=== PATIENT | female | born 1970 | race Caucasian/White ===

== ENCOUNTER 2018-03-15 17:34 | Emergency (ER) | payer MEDICAID, SELFPAY ==
[2018-03-15 17:40] VITALS: BP 140/84; PULSE 76; RESP 18; TEMP 37; O2SAT 99
[2018-03-15] MEDS: Lidocaine 5% Patch 1 PATCH (17:45)
--- NOTE | 2018-03-15 17:56 | ED.GENADUL ---
Disposition Clinical Impression: Left shoulder pain Disposition: HOME Condition: Fair Instructions: Shoulder Pain (ED) Additional Instructions: Please take a maximum of 1000 mg of Tylenol every 6 hours, please take a maximum of 550 mg of your naproxen twice daily. Please use the Lidoderm patch, muscle relaxant, and cream as directed. Please do not drive, operate heavy machinery, climb ladders, while taking the muscle relaxant. Please follow-up with orthopedic surgeon as soon as possible for reevaluation. If you notice any worsening of your symptoms, or any new symptoms such as vomiting, diarrhea, fever, chills, shortness of breath, chest pain, numbness, weakness, or fainting , please return immediately to the emergency department for reevaluation. Please follow up with your primary care provider as soon as possible for reassessment and reevaluation. As always, it was a pleasure participating in your medical care today. 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 Medrano. She is scheduled to have surgery in less than 3 weeks. She comes in today for worsening of pain. She did see Dr. Medrano earlier this week, but had no significant improvement with the naproxen that was prescribed. She has been taking additional [id number] Tylenol for her symptoms with no significant improvement. Physical exam demonstrates worsening pain on internal rotation and posterior movement consistent with her history of musculoskeletal shoulder problems. She does have some associated numbness and tingling that comes and goes, worse at night. No evidence of weakness, hypo-or hyperthenar eminence wasting. She demonstrates intact sensation throughout. No significant crepitus or deformity. The patient does not want additional imaging at this time as she recently had imaging with Dr. Medrano within the past week. She denies any additional falls, or trauma since then. Physical exam shows no other abnormalities. Patient's signs and symptoms are consistent with anatomical shoulder pathology, and inconsistent with chest pathology, cardiac pathology, or central neurologic pathology. At this time we have provided the patient with additional pain options, including Lidoderm patch, Voltaren gel, IM Decadron, and muscle relaxants especially in light of her notable neck spasm and shoulder spasms. We have prescribed these for the patient, we have discussed red flags which to return as well as the importance of prompt surgical follow-through and evaluation with orthopedic surgeon. Patient understands. I have extensively reviewed the treatment plan and discharge instructions with the patient. I have addressed all patient concerns at this time. The patient was made aware of what symptoms to monitor for that would warrant a return to the emergency department. Discussed the plan with the patient, they demonstrate verbal understanding and agreement with our assessment and plan at this time. History of Present Illness - General Chief complaint: Orthopedic Stated complaint: LFT SHOULDER PAIN Time Seen by Provider: 03/15/18 17:53 - History of Present Illness Initial comments: This is a pleasant 47-year-old female with a past medical history of previous right-sided shoulder surgery, who presents today with left shoulder pain. Patient does have some chronic pain in her left shoulder however she states that roughly 1 week ago she was jumping out of her truck and caught herself, using both of her arms. She had some pain in her left shoulder at that time. However the pain has significantly worsened with time. She has seen Dr. Medrano in [place] for orthopedic referral, which she has received x-rays and an MRI which demonstrates rotator cuff abnormalities and the labrum tear. She is scheduled to have surgery on 03 April which is less than 3 weeks away. She was at Dr. Olea earlier this week, and was prescribed naproxen for her pain. She has been taking this and Tylenol and has had no significant improvement of her symptoms. She describes the pain as sharp and aching sensation with associated tightness that radiates to her neck, remainder of her shoulder and the proximal component of her forearm. She has no pleuritic chest pain, no shortness of breath, no chest pain, no diaphoresis, no fatigue. She has no history of cardiac disease, or cardiac risk factors of hypertension, diabetes, high cholesterol. She does occasionally smoke tobacco. The patient does have some associated occasional numbness and tingling in her arm which radiates down to her hand. Worse in the first 3 digits. Her pain is worsened with movement. She has had difficulty sleeping because of the pain. She is presenting today for options of relief. Patient denies any IV or illicit drug use. She denies any pertinent family history. She has no other complaints at this time. - Related Data Acetaminophen [Tylenol Extra Strength] 100 mg PO PRN PRN 03/15/18 Cyclobenzaprine [Flexeril] 10 mg PO TID #30 tab 03/15/18 Diclofenac Sodium [Voltaren] 100 gm TP BID #1 tube 03/15/18 Lidocaine 5% [Lidoderm 5% Patch] 1 each TP Q24H #4 patch 03/15/18 Naproxen Sodium 550 mg PO BID 03/15/18 Allergies Allergy/AdvReac Type Severity Reaction Status Date / Time Penicillins Allergy Unknown Unverified 03/15/18 17:53 Review of Systems Other: 10 point review of systems was performed, pertinent positives and negatives are noted in the history of present illness. General Exam - Other Other exam information: 1.Const: Well-nourished, Well-developed, appearing stated age 2.Eyes: PERRL, no conjunctival injection, and symmetrical lids. 3.ENT: Atraumatic external nose and ears. Moist MM. Neck: Symmetric, trachea midline, No thyromegaly. 4.CVS: +S1/S2, No murmurs or gallops. Peripheral pulses 2+ and equal in all extremities. Brisk capillary refill in all extremities. 5.RESP: Unlabored respiratory effort. Clear to auscultation bilaterally. No wheezes rales or rhonchi 6.GI: Soft, Nontender/Nondistended, No hepatosplenomegaly. No guarding or rebound. 7.MSK: Normocephalic/Atraumatic, Extremities w/o deformity No cyanosis or clubbing. The patient's left upper extremity demonstrates notable reproducible pain with internal rotation and posterior movement of the shoulder. She demonstrates normal external rotation and anterior movement. Minimal reproducible tenderness on the shoulder itself. No deformity. Notable tight musculature over the patient's left neck, left shoulder region. Normal sensation is intact throughout the patient's left upper extremity. Patient does have positive Phalen's test on percussion. She does demonstrate normal strength for the left upper extremity, however it is slightly reduced by pain. No evidence of thenar or hyperthenar eminence wasting. Brisk capillary refill, radial pulse +2 bilaterally. 8.Skin: Warm, Dry. No rashes or lesions. 9.Neuro: sample coordinator II-XII grossly intact. Sensation grossly intact, no focal neurologic deficits. 10.Psych: (AAO) x3. Appropriate mood and affect
[2018-03-15] MEDS: Cyclobenzaprine 10 MG TAB PO (18:05)
[2018-03-15] MEDS: Dexamethasone 10 MG/ML VIAL IM (18:11)
== END 2018-03-15 18:20 | disposition home or self-care (01) ==
LOC: ER 05-21 13:31
PROVIDERS: Emergency Provider Student in an Organized Health Care Education/Training Program; PCP Nurse Practitioner Family
DX: M25.512 Pain in left shoulder (principal)
CPT/HCPCS: 96372; 99284; J1100

== ENCOUNTER 2019-03-27 09:33 | Emergency (ER) | payer MEDICAID, SELFPAY ==
--- NOTE | 2019-03-27 09:37 | ED.GENADUL_ITS ---
Discharge Plan Disposition Patient Disposition: HOME Condition: Fair Discharge Details Chief Complaint: Orthopedic Clinical Impression: Ankle sprain Primary Care Provider: Mary Fu ED Provider: Aubrie Gardiner Home Meds and New Rx's Prescriptions: Continued naproxen sodium 550 MG tablet 550 mg PO BID RF: 0 acetaminophen [Tylenol Extra Strength] 500 MG tablet 100 mg PO PRN PRNRF: 0 lidocaine [Lidoderm] 1 PATCH adhesive patch,medicated 1 ea Topical Q24H Qty: 4 RF: 0 cyclobenzaprine 10 MG tablet 10 mg PO TID Qty: 30 RF: 0 diclofenac sodium [Voltaren] 100 GM gel 100 gm Topical BID Qty: 1 RF: 0 Discharge Instructions Instructions: Ankle Sprain (ED) Additional Instructions: Encourage rest, ice, elevation. Tylenol and ibuprofen as needed for discomfort. Please continue with brace for the next week and then afterwards for activities that causes increased pain. If the pain persists over the next 2 weeks, please follow-up with primary care. If you develop any new or worsening symptoms please seek care urgently once again. Referrals: Mary Fu [Primary Care Provider] - Discharge Data Discharge Date/Time-TO BE ENTERED AT DEPARTURE: 03/27/19 10:53 Medical Decision Making Patient is a 48 year old female presenting today with c/c of left ankle/foot pain. sTates that last night she suffered an internal rotational event coming down a step and has persistent pain over the proximal lateral foot where she has associated ecchymosis. Denies other injury at the time of the incident, did not hit her head, no LOC. Denies altered sensation. No previous injury to this area. Pain is over the proximal lateral dorsal foot. Concerned primarily for sprain as pain is maximal over the ATFL. However, as she has tenderned along the plantar surface near the 5th metatarsal, feel that imaging is appropriate. Patient declines analgesics. XR reviewed by radiologist: FINDINGS: Bones/joints: No acute fracture. No dislocation. Soft tissues: Normal. IMPRESSION: No acute findings. Discussed findings with the patient. Discussed likely sprain. Encourage rice. Advised Tylenol and ibuprofen as needed for discomfort. We will fit the patient with a splint to help with swelling and discomfort. Advise follow-up with primary care in 2 weeks if not improving. Discussed activities to avoid and strengthening excercises. She will seek care urgently with any new/worsening symptoms. All of her questions and concerns were addressed she is in agreement with plan. HPI General Mode of arrival: ambulatory . Date/Time Provider Initiated Documentation: 03/27/19 09:36 . Limitations to Documentation: no limitations . Information obtained by: patient and RN notes reviewed . History of Present Illness 48 year old F presents to the emergency department with the chief complaint of left foot pain, described as moderate, Quality is described as aching, and is localized to the left. Patient reports no radiation. Patient started experiencing this day(s) (1) and it has been constant. Immobilization improves symptom(s), Movement worsens symptoms . Patient notes no other symptoms.. Patient did receive the following treatments prior to arrival, none Related Data Home Medications Medication Instructions Recorded Confirmed acetaminophen [Tylenol Extra 100 mg PO PRN PRN 03/15/18 03/15/18 Strength] cyclobenzaprine 10 mg PO TID #30 tab 03/15/18 diclofenac sodium [Voltaren] 100 gm TOPICAL BID #1 tube 03/15/18 lidocaine [Lidoderm] 1 ea TOPICAL Q24H #4 patch 03/15/18 naproxen sodium 550 mg PO BID 03/15/18 03/15/18 Previous Rx's Medication Instructions Recorded cyclobenzaprine 10 mg PO TID #30 tab 03/15/18 diclofenac sodium [Voltaren] 100 gm TOPICAL BID #1 tube 03/15/18 lidocaine [Lidoderm] 1 ea TOPICAL Q24H #4 patch 03/15/18 Allergies Allergy/AdvReac Type Severity Reaction Status Date / Time Penicillins Allergy Unknown Unverified 03/15/18 17:53 Review of Systems Constitutional Reports as per HPI, Denies chills, Denies fever(s), Denies headache(s) and Denies weakness ENT Denies headache(s) Cardiovascular Reports as per HPI Respiratory Reports as per HPI and Denies cough Musculoskeletal Reports as per HPI and Denies tingling Integumentary/Breasts Reports as per HPI, Denies rash and Denies wounds Neurologic Reports as per HPI, Denies headache(s), Denies tingling, Denies paresthesias and Denies weakness PFSH Social History Smoking/Tobacco Use Status: Current, status unknown Tobacco Type: cigarettes Alcohol Intake: current Alcohol Intake frequency: a few times a week Alcohol type: beer and wine Drug use: Never Substance use type: does not use Do you feel safe at home: Yes Do you feel safe in your relationship?: Yes Exam Const General: cooperative, healthy appearing, comfortable, no acute distress, well developed and well groomed Nutritional Appearance: average body habitus and well nourished Orientation: alert and awake Resp Effort & Inspection: normal respiratory effort, able to speak in complete sentences and no respiratory distress Cardio Rate: regular rate Rhythm: regular rhythm Skin General skin exam: ecchymosis (proximal dorsal lateral left foot with associated swelling) Neuro General: alert and awake Cognition: normal cognition Speech: speech normal Gait: antalgic Motor: muscle tone normal throughout Sensory Exam: no sensory deficits noted Extrem Left lower extremity: full ROM, normal capillary refill, no joint enlargement, knee (no pain over proximal fibula), lower leg Details: normal to inspection and no edema; no localized swelling, ankle Details: normal to inspection, no edema, normal ROM and other (no pain with palpation over the lateral malleolus); no tenderness, no swelling, no warmth, no abrasions, no lacerations, no ecchymosis, no crepitus and achilles tendon exam normal and foot Details: normal capillary refill, tenderness Location: of the dorsal foot Location: proximally and laterally, of the plantar foot (near lateral 5th metatarsal) and of the lateral foot; not of the great toe, not of any other digit, not of the calcaneus and not of the base of the 5th metatarsal, toes with normal ROM, no edema, ecchymosis (as above), vascular exam Details: dorsalis pedis pulse present, posterior tibial pulse present and normal capillary refill, tendon exam Details: active flexion normal and active extension normal and motor-sensory exam Details: light-touch normal; no unusual warmth and no crepitus Ankle/foot/toe images: 1. area of ecchymosis Psych Appearance: grossly normal and well kempt Mental Status: mental status grossly normal Speech and Movement: speech and movement normal
--- NOTE | 2019-03-27 09:39 | NUR.NOTE ---
Nursing Note: pt states that at approximately 1999 last night she rolled her ankle wile walking down a flight of stars pt states no other injures no LOC
[2019-03-27 09:40] VITALS: BP 127/73; PULSE 90; RESP 15; TEMP 37.1; O2SAT 99
--- NOTE | 2019-03-27 09:54 | DI.RAD_ITS ---
SYMPTOM/DIAGNOSIS: LATERAL LT FOOT PAIN LEFT FOOT: Three views were obtained. No fracture is seen.
--- NOTE | 2019-03-27 10:22 | DI.VRAD_ITS ---
EXAM: XR Left Foot Complete EXAM DATE/TIME: 03/27/2019 9:41 AM CLINICAL HISTORY: 48 years old, female; Patient HX: Left lateral foot pain due to twisting injury TECHNIQUE: Imaging protocol: XR Left foot. Views: 3 or more views. COMPARISON: No relevant prior studies available. FINDINGS: Bones/joints: No acute fracture. No dislocation. Soft tissues: Normal. IMPRESSION: No acute findings. Dictated and Authenticated by: Adry Lerma MD. Ordering:SUMAN Alfred MD
[2019-03-27 10:52] VITALS: BP 127/73; PULSE 90; RESP 15; TEMP 37.1; O2SAT 99
== END 2019-03-27 10:53 | disposition home or self-care (01) ==
PROVIDERS: Emergency Provider Physician Assistant; PCP Nurse Practitioner Family
DX: S93.402A Sprain of unspecified ligament of left ankle, initial encounter (principal); W10.8XXA Fall (on) (from) other stairs and steps, initial encounter
CPT/HCPCS: 99283; 73630; 99282; L1902

== ENCOUNTER 2020-06-11 11:05 | Emergency (ER) | payer MEDICAID, SELFPAY ==
[2020-06-11 11:14] VITALS: BP 143/78; PULSE 107; TEMP 36.9; O2SAT 98
--- NOTE | 2020-06-11 11:15 | W.ED.GENAD ---
Discharge Plan Disposition Patient Disposition: HOME Condition: Stable Discharge Details Clinical Impression: Dental infection Primary Care Provider: None,None ED Provider: Demetrius Henderson Home Meds and New Rx's Prescriptions: New clindamycin HCl 300 mg capsule 300 mg PO TID 10 Days Qty: 30 RF: 0 Continued ibuprofen 200 mg Tablet 600 mg PO Q6H PRNRF: 0 acetaminophen [Tylenol Extra Strength] 500 MG tablet 500 mg PO PRN PRNRF: 0 Discharge Instructions Instructions: Dental Abscess (ED) Additional Instructions: Discontinue taking the amoxicillin and begin clindamycin as directed. [id number] Tylenol and/or Motrin as directed for discomfort. Cool and/or warm compresses every 2 hours for 20 days. You may use lhyd-[id number] Orajel as directed. Salt water swishes and spits as tolerated. I do recommend that you quit smoking as well. Please watch for new or worsening symptoms and return to the ER for any concerns. Otherwise I would like you to follow-up with your dentist as already scheduled at 7 AM tomorrow morning. Medical Decision Making 49-year-old female presents with right-sided dental, facial, neck and ear discomfort worsening over the past 2 days. Has taken a total of 4 tablets of unknown strength amoxicillin. Scheduled to see a dentist tomorrow. She does smoke roughly 1/2 packs of cigarettes daily. She has tried some bpjm-pqg-[id number] medication with minimal relief. She appears well, nontoxic, afebrile. No evidence of pointing abscess that would require emergent I&D. Airway is patent. No evidence of trismus. Given she has potentially been subtherapeutically treating herself with amoxicillin for the past couple of days, I would like to have her discontinue the amoxicillin and I will add on clindamycin. We discussed stss-wai-nvhuomw Tylenol, Motrin, salt water gargles, Orajel, and cool-warm compresses. We discussed the importance of following up with her dentist tomorrow as already scheduled and encouraged to return to the ER for new or worsening symptoms. Both blood pressure and heart rate trended down nicely while here in the ER. Medical Records Medical records reviewed: Yes I reviewed the patient's medical records. HPI General Mode of arrival: ambulatory. Date/Time Provider Initiated Documentation: 06/11/20 11:06. Limitations to Documentation: no limitations. Information obtained by: patient. HPI Narrative: This is a 49-year-old female, current smoker, presenting for right-sided facial and dental pain. She reports that her right, lower, front molar began bothering her on Friday. She had some leftover amoxicillin at home, unsure of the dose, has taken a total of 4 tablets since Friday. She states that the physical to does not really hurt anymore but she has had some swelling to her face, pain that radiates down into her neck and up into her right ear, made worse with opening her jaw wide or swallowing. She has taken [id number]-blw-[id number] medication with only mild relief. She is scheduled to be seen by a dentist tomorrow morning at 7 AM. Denies fever, headache, sore throat, chest pain, cough, shortness of breath. Patient reports that pain is increased when she tries to eat as well. Related Data Home Medications Medication Instructions Recorded Confirmed acetaminophen [Tylenol Extra 500 mg PO PRN PRN 03/15/18 06/11/20 Strength] clindamycin HCl 300 mg PO TID 10 Days #30 cap 06/11/20 ibuprofen 600 mg PO Q6H PRN 06/11/20 06/11/20 Previous Rx's Medication Instructions Recorded clindamycin HCl 300 mg PO TID 10 Days #30 cap 06/11/20 Allergies Allergy/AdvReac Type Severity Reaction Status Date / Time Penicillins Allergy Unknown Unverified 06/11/20 11:18 General ANDREW: 4 Review of Systems Constitutional Constitutional: Denies fever(s) and Denies headache(s) ENT Ears, Nose, Mouth, and Throat: Denies headache(s), Reports neck pain (Right sided anterior) and Denies sore throat Cardiovascular Cardiovascular: Denies chest pain and Denies dyspnea Respiratory Respiratory: Denies cough and Denies dyspnea Gastrointestinal Gastrointestinal: Denies abdominal pain, Denies nausea and Denies vomiting Integumentary/Breasts Skin/Breast: Denies rash Neurologic Neurologic: Denies headache(s) [facility] Social History Smoking/Tobacco Use Status: Current every day Tobacco Type: cigarettes Smoking risk assessment performed?: Yes Alcohol Intake: current Alcohol Intake frequency: a few times a week Alcohol type: beer and wine Drug use: Never Substance use type: does not use Do you feel safe at home: Yes Do you feel safe in your relationship?: Yes Exam Const General: cooperative, healthy appearing, comfortable and no acute distress Orientation: alert and awake [facility] Head: normal to inspection, normocephalic and atraumatic Ears: external ears normal, TM's normal bilaterally and EAC's normal General nose exam: external nose normal Face images: 1. Diffuse mild discomfort to palpation 2. Minimal swelling-tenderness Mouth: moist mucous membranes Teeth and gingiva: poor dentition Teeth image: 1. Mild discomfort to palpation. Without any gingival swelling, erythema, pointing abscess. Throat: posterior oropharynx normal Eyes General: appearance normal, both eyes and all related structures Conjunctivae: conjunctivae normal Sclera: sclerae normal Neck Neck: normal visual inspection, full ROM, no meningeal signs, trachea midline, supple and tender Lymphatic: lymphadenopathy right anterior cervical Resp Effort & Inspection: normal respiratory effort and able to speak in complete sentences Auscultation: clear to auscultation bilaterally Cardio Rate: regular rate Rhythm: regular rhythm Skin General skin exam: no rashes or lesions noted Neuro General: patient alert, patient awake, moves all extremities and no focal motor deficits Sensory Exam: no sensory deficits noted Psych Appearance: grossly normal Mental Status: mental status grossly normal
[2020-06-11] MEDS: Clindamycin 300 MG CAP PO (11:37)
[2020-06-11 11:57] VITALS: BP 114/74; PULSE 82; RESP 16; TEMP 36.7; O2SAT 98
== END 2020-06-11 12:03 | disposition home or self-care (01) ==
PROVIDERS: Emergency Provider Physician Assistant
DX: R68.84 Jaw pain (principal); K04.7 Periapical abscess without sinus; R22.0 Localized swelling, mass and lump, head; H92.01 Otalgia, right ear
CPT/HCPCS: 99283

== ENCOUNTER 2020-08-27 13:14 | Emergency (ER) | payer MEDICAID, SELFPAY ==
[2020-08-27 13:18] VITALS: BP 138/90; PULSE 85; RESP 18; TEMP 36.5; O2SAT 99
--- NOTE | 2020-08-27 13:46 | W.ED.GENAD ---
Discharge Plan Disposition Patient Disposition: HOME Condition: Good Discharge Details Clinical Impression: Cervical radiculopathy at C7 Primary Care Provider: None,None ED Provider: Sara Wright Home Meds and New Rx's Prescriptions: New hydrocodone-acetaminophen [Petaca] 5-325 mg tablet 1 tab PO BID PRNQty: 5 RF: 0 lidocaine [Lidoderm] 5 % adhesive patch,medicated 1 patch topical DAILY Qty: 1 RF: 0 prednisone 20 mg tablet 40 mg PO DAILY 5 Days Qty: 10 RF: 0 No Action ibuprofen 200 mg Tablet 600 mg PO Q6H PRNRF: 0 acetaminophen [Tylenol Extra Strength] 500 MG tablet 500 mg PO PRN PRNRF: 0 Discharge Instructions Additional Instructions: No lifting greater than 5 pounds Follow-up with your primary care physician tomorrow for reevaluation Take prednisone as prescribed Do not take ibuprofen while taking the prednisone Take 650 to 1 g of Tylenol every 6 hours for the next several days for pain control Take the oxycodone very sparingly, this medication is addictive and can make you constipated, this medication should only be used at night or if you are planning on staying home You may use lidocaine patches, 14 hours on, 14 hours off Please return with weakness to the extremity, fever, chest pain, shortness of breath, or with any new or progressing symptoms Medical Decision Making Low suspicion for discitis, no history of IV drug use, afebrile, not toxic No indication for emergent MRI, no weakness, paresthesias only and preserved function Feels significantly improved overlying trapezius region after trigger point injection but still has the paresthesias No evidence of overlying shingles I do not see any benefit to x-ray imaging given that there was no specific trauma Denies chest pain or shortness of breath and pain is reproducible, consistent with complaints Recheck with primary care physician in 24 to 48 hours recommended Placed on prednisone, Lidoderm, and given 5 tabs of hydrocodone, I discussed risk associated with addiction with patient she expressed understanding Differential Diagnosis Differential Diagnosis: Radiculopathy, fracture, strain, discitis Medical Records Medical records reviewed: Yes I reviewed the patient's medical records. HPI This 50-year-old female who is otherwise healthy presents with report of back pain into her left arm that started on Friday of this week. She went to the chiropractor which unfortunately did not resolve her symptoms. She states she tried muscle relaxants and ibuprofen without alleviation of her symptoms. She denies any weakness to the affected extremity. She denies any chest pain or shortness of breath. She denies any headache or dizziness. Pain is exacerbated with movement of her arm. She denies known injury to the affected area. She describes the pain as sharp. General Date/Time Provider Initiated Documentation: 08/27/20 13:15. Related Data Home Medications Medication Instructions Recorded Confirmed acetaminophen [Tylenol Extra 500 mg PO PRN PRN 03/15/18 08/27/20 Strength] ibuprofen 600 mg PO Q6H PRN 06/11/20 08/27/20 hydrocodone-acetaminophen [Petaca] 1 tab PO BID PRN #5 tab 08/27/20 lidocaine [Lidoderm] 1 patch TOPICAL DAILY #1 ea 08/27/20 prednisone 40 mg PO DAILY 5 Days #10 tab 08/27/20 Previous Rx's Medication Instructions Recorded hydrocodone-acetaminophen [Petaca] 1 tab PO BID PRN #5 tab 08/27/20 lidocaine [Lidoderm] 1 patch TOPICAL DAILY #1 ea 08/27/20 prednisone 40 mg PO DAILY 5 Days #10 tab 08/27/20 Allergies Allergy/AdvReac Type Severity Reaction Status Date / Time Penicillins Allergy Unknown Unverified 08/27/20 13:24 General Stated Complaint: Nk/Back Pain ANDREW: 3 Review of Systems Narrative: Review of systems negative x7 aside from medication HPI [facility] Social History Smoking/Tobacco Use Status: Current every day Tobacco Type: cigarettes Smoking risk assessment performed?: Yes Alcohol Intake: current Alcohol Intake frequency: a few times a month Alcohol type: beer and wine Drug use: Never Substance use type: does not use Do you feel safe at home: Yes Do you feel safe in your relationship?: Yes Exam Const General: cooperative and healthy appearing Neck Other: Paraspinal tenderness at the C6-C7 region, mild midline tenderness, no overlying rash or lesion Chest Chest: normal inspection of the chest Resp Effort & Inspection: normal respiratory effort Auscultation: clear to auscultation bilaterally Cardio Rate: regular rate Rhythm: regular rhythm Pulses: normal peripheral pulses Back/Spine/Pelvis Back/spine/pelvis image: 1. Tenderness to palpation, no overlying rash or lesion Neuro Other: DTRs intact bilaterally in lower extremities, strength and sensation intact and symmetrical to bilateral upper and lower extremities Course Vital Signs Vital signs: Vital Signs Temperature 36.5 C 08/27/20 13:18 Pulse 85 08/27/20 13:18 Respiratory Rate 18 08/27/20 13:18 Blood Pressure 138/90 08/27/20 13:18 Pulse Oximetry 99 08/27/20 13:18 Temperature 36.5 C 08/27/20 13:18 Temperature Source Temporal Artery Scan 08/27/20 13:18 Pulse 85 08/27/20 13:18 Respiratory Rate 18 08/27/20 13:18 Respiratory Effort Non-Labored 08/27/20 13:23 Blood Pressure 138/90 08/27/20 13:18 Blood Pressure Position Sitting 08/27/20 13:18 Pulse Oximetry 99 08/27/20 13:18 Oxygen Delivery Method Room Air 08/27/20 13:18 Oxygen Flow Rate 0 08/27/20 13:18 Pain Level 9 08/27/20 13:18 Procedures Other Description: Right trapezius region was cleansed with several alcohol and a 1-1/2 inch 27-gauge syringe was used to perform a trigger point injection with bupivacaine, 25% without epi
--- OUTSIDE RECORDS SUMMARY | 2020-08-27 13:47 | XMS_ITS ---
:1970 Author Care Team Providers Name Role Phone Funez Primary Care Provider Unavailable Allergies Code Code System Name Reaction Severity Status Onset Penicillins ? ? Active ? Medications Name Status Start Date Stop Date ? ? Atrovent 42 mcg (0.06 %) nasal spray Completed 08/03/2007 08/10/2007 2 (two) [place](s): Four times daily as needed clarithromycin 500 mg tablet Completed 10/10/2005 1 (one) Tablet: BID clindamycin HCl 300 mg capsule Completed 12/28/2009 0 01/07/2010 1 (one) Capsule: Three times a day cyclobenzaprine 10 mg tablet Completed ? 02/2020 Take 1 tablet 3 times a day by oral route as needed. Mirena 20 mcg/24 hours (6 yrs) 52 mg intrauterine device Active 06/09/2020 Not available Take by intrauterine route. naproxen sodium 550 mg tablet Completed ? oxycodone 5 mg tablet Completed ? 04/30/2019 prednisone 20 mg tablet Completed ? 11/26/19 20 Take 2 tablets every day by oral route for 5 days. prednisone 50 mg tablet Completed 02/12/2017 02/18/20 17 1 (one) Tablet: daily Robaxin 500 mg tablet Completed 05/29/2017 05/29/2017 1 (one) Tablet: twice a day as needed triamcinolone acetonide 0.025 Completed ? % topical cream Voltaren 1 % topical gel Completed ? 020 Problems Name Status Onset Date Source ? Verruca Vulgaris Active ? History Obesity Active ? History Carpal Tunnel Syndrome Active ? History Disorder of Hard Tissues of Teeth Unknown ? History Shoulder Joint Pain Active ? History Sciatica Active ? History Bursitis Active ? History Pain in Limb Unknown ? History Reduced Libido Active ? History Adult Health Examination Unknown ? History Endocrine/metabolic Screening Unknown ? Hi story Injury of Right Lower Leg Unknown ? Histor y Procedure by Method Unknown ? History Pelvic and Perineal Pain Unknown ? History Evaluation Procedure Unknown ? History Disorder of Lower Respiratory System Unknown ? History Inflammatory Dermatosis Unknown ? History Procedures Date Name Performed by ? ? Appendectomy Information not avai lable Notes: Age 11 04/30/2019 XR, Knee, 3 View [facility] (Internal) [address] [place] [address] (Work [address]) 05/04/2019 XR, Knee, 4 or More View [facility] (Internal) [address] [place] [address] (Work Place) 06/25/2019 MRI, Knee, W/o Contrast [facility] Rad[facility] (Internal) [address] [place] [address] (Work Place) 11/26/2019 MAMMO, Screening, Tomosynthesis, [facility] Radiology (Internal) Bilateral [address] [place] [address] (Work Place) Results Lab Results Date Name Specimen Result Interpretation Description Value Range Status Address ? 05/31/2017 Venipuncture BLD ? Venpn* ? ? Final [facility] (Internal) : [address] 05/31/2017 Glucose, Serum S ? g/r 97 74-1 Final [facility] or Plasma mg/dL 06 Hospita l Lab mg/d (Internal) : L [address] 05/31/2017 TSH, Serum or S ? Tsh 2.71 0.47 Final [facility] Plasma u[IU]/ -4.6 Hospital L ab mL 8 (Internal) : u[IU [address], ]/mL Toy 05/31/2017 Lipid Panel, S High Chol 224 50-2 Final [facility] Serum mg/dL 00 Hospital L ab mg/d (Internal) : L [address] ? ? S ? Trig 135 10-1 Final [facility] try mg/dL 50 Hospital L ab mg/d (Internal) : L [address] ? ? S Low Hdl 33 40-6 Final [facility] try mg/dL 0 Hospital L ab mg/d (Internal) : L [address] ? ? S High Ldl 164 0-13 Final [facility] try mg/dL 0 Hospital L ab mg/d (Internal) : L [address] [place] Past Encounters 07/24/2020 Gynecologic Examination; IUD Check Brenan Bynum, BONITAM: [address] [place] [address], Ph. 06/09/2020 Screening for Malignant Neoplasm of Cerv ix; Replacement of Intrauterine Contraceptive Device; Female Stress Incontinence Brenna Bynum, BONITAM: [address] [place] [address], Ph. 11/26/2019 Adult Health Examination; Active or Pass neftaly Immunization; Screening Mammography; Screening for Cardiovascular System Disease Keri Funez SHIFT STACKER: [address] [place] [address], Ph. 04/30/2019 Low Back Pain; Knee Pain Keri Funez SHIFT STACKER: [address] [place] [address], Ph. Social History Tobacco Smoking Status Light Tobacco Smoker (1 PPW) Vaccine List Vaccine Type influenza, seasonal, injectable, preserv ative free 08/29/2010?0.5 mL Plan of Care Reminders Provider Appointments None ? ? recorded. Lab None ? ? recorded. Referral None ? ? recorded. Procedures None ? ? recorded. Surgeries None ? ? recorded. Imaging None ? ? recorded. Vitals 07/24/2020 10:30AM HME 30 Height Weight BMI Blood Pressure 157.48 cm 93.85 kg 37.8 kg/m2 126/72 mm[Hg] 06/09/2020 10:40AM IUD 30 Height Weight BMI Blood Pressure 157.48 cm 92.76 kg 37.4 kg/m2 126/72 mm[Hg] 11/26/2019 10:40AM CPE 40 Height Weight BMI Blood Pressure 157.48 cm 91.8 kg 37 kg/m2 120/76 mm[Hg] 04/30/2019 11:20AM Same Day 20 Weight Blood Pressure 89.77 kg 118/80 mm[Hg] 05/29/2017 Height Weight Blood Pressure 160.02 cm 93.58 kg 116/80 mm[Hg] 02/12/2017 Weight Blood Pressure 92.49 kg 122/74 mm[Hg] 05/22/2015 Height Weight Blood Pressure 157.48 cm 84.32 kg 122/72 mm[Hg] 04/27/2015 Height Weight Blood Pressure 157.48 cm 84.78 kg 98/72 mm[Hg] 04/06/2015 Blood Pressure 128/78 mm[Hg] 06/23/2012 Weight Blood Pressure 87.18 kg 128/76 mm[Hg] 10/03/2011 Height Weight Blood Pressure 157.48 cm 80.74 kg 129/80 mm[Hg] 10/01/2011 Weight Blood Pressure 82.19 kg 108/68 mm[Hg] 01/29/2011 Height Weight 160.02 cm 79.38 kg 12/18/2010 Height Weight Blood Pressure 157.48 cm 81.96 kg 118/68 mm[Hg] 10/05/2010 Height Weight Blood Pressure 157.48 cm 80.06 kg 132/74 mm[Hg] 10/02/2010 Weight Blood Pressure 79.83 kg 130/85 mm[Hg] 08/29/2010 Height Weight Blood Pressure 157.48 cm 79.38 kg 112/80 mm[Hg] 12/28/2009 Blood Pressure 130/78 mm[Hg] 01/17/2009 Weight Blood Pressure 81.65 kg 118/76 mm[Hg] 08/03/2007 Weight Blood Pressure 72.12 kg 100/68 mm[Hg] 03/19/2007 Weight Blood Pressure 68.04 kg 116/78 mm[Hg] 10/10/2005 Weight Blood Pressure 64.86 kg 116/78 mm[Hg] 06/05/2005 Weight Blood Pressure 61.23 kg 110/70 mm[Hg] 07/26/2004 Weight Blood Pressure 79.38 kg 104/76 mm[Hg]
--- OUTSIDE RECORDS SUMMARY | 2020-08-27 13:47 | XMS_ITS | Encounter Summary ---
:1970 Author Reason for Visit Contraception Patient here for Mirena IUD swap. Patie nt wants to discuss stress incontinence and wants to discuss bladder sling. Assessment and Plan Assessment Note IUD removed by Jackson Griffith CNM, and r eplaced by LRL. 1. Screening for malignant neopl asm of cervix ? pap test, thinprep, cervic al 2. Replacement of intrauterine c ontraceptive device IUD successfully inserted thro ugh stenotic os. Strings visible. Check placement at annual exam in 6 weeks. ? Mirena 20 mcg/24 hours (6 yrs) 52 mg intrauterine device 3. Female stress incontinence Per patient report. Would like referral to Dr. Martin for evaluation and to discuss treatment options. Discussion Note: None recorded.Patient educational handouts: No information available. Plan of Care Reminders Provider Appointments e 30 07/24/2021 Brenna Acharya 10:00AM JO ANN Bynum ? Hme 30 on or around Brenna Acharya 07/24/2021 JO ANN Bynum Lab Pap Test, 06/09/2020 [facility] Thinprep, [facility] Lab (Internal) Referral None ? ? recorded. Procedures None ? ? recorded. Surgeries None ? ? recorded. Imaging None ? ? recorded. Medications Name Start Date ? ? Mirena 20 mcg/24 hours (6 yrs) 52 mg intrauterine mike ce 06/09/2020 Take by intrauterine route. Prescription - New ? Medications Administered None recorded. Vitals Height Weight BMI Blood Pressure 5 ft 2 in 204.5 lbs 37.4 kg/m2 126/72 mm[Hg] Results Lab Results None recorded. Allergies Code Code System Name Reaction Severity Onset Penicillins ? ? ? Problems Name Status Onset Date Source ? Verruca Vulgaris Active ? History Obesity Active ? History Carpal Tunnel Syndrome Active ? History Shoulder Joint Pain Active ? History Sciatica Active ? History Bursitis Active ? History Reduced Libido Active ? History Procedures Date Name Performed by ? ? Appendectomy Information not susanamanda diallo Notes: Age 11 Vaccine List Vaccine Type influenza, seasonal, injectable, preserv ative free 08/29/2010?0.5 mL Social History Tobacco Smoking Status Light Tobacco Smoker (1 PPW) Alcohol intake Occasional Smokeless Tobacco Status Never used smokeless tobacco Current Method of Intrautrine device Notes: Mirena 05/22/15 Control Most Recent Tobacco Use 05/21/2020 Screening E-cigarette/Vape Status Never used electronic cigarettes Drug Use N Family History Relation Problem Onset Age of Age Notes Mother Family history of (No N/A Skin cancer Information) Father Hypertensive disorder (No N/A (No No satcy) Information) Functional Status Unknown. Past Encounters 06/09/2020 Screening for Malignant Neoplasm of Cerv ix; Replacement of Intrauterine Contraceptive Device; Female Stress Incontinence Brenna Bynum CNM: [address] [place] [phone], Ph. History of Present Illness ? Control Visit Reported By: Patient HPI: Context: (normal) cont rol: control method: intrauterine device (iud). Associated Sym ptoms: no BTB menses, no side effects Notes: <p>
</p> Note: <p>Happy with method, no bleeding, no pain.
</p><p>
</p><p>Reports frequent stress incontinence with coughing, sneezing, laughing, and exercising.</p> Review of Systems: ROS as noted in the HPI Review of Systems None recorded. Physical Exam ? Brief Pelvic Exam Reported By: Patient Carbon Lamp Cleaner: Carbon Lamp Cleaner: offered and decli kellen Skin: Appearance: no lesions Female Genitalia: Vulva: no lesions. Vagina: n o tenderness, no abnormal vaginal discharge. Cervix: no cervic al motion tenderness, sample taken for a Pap smear, IUD string seen ; Nabothian cyst @5:00, os with moderate stenosis. Uterus: n ormal size, normal shape, midline, no uterine prolapse, mobile, no n-tender. Adnexa/Parametria: no adnexal tenderness, no ovarian mass
--- OUTSIDE RECORDS SUMMARY | 2020-08-27 13:47 | XMS_ITS | Encounter Summary ---
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 Melo stephanie was swapped on 06/09/20. Assessment and Plan 1. 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 Good diet, active. Pap up to date. Mammo ordered. 2. IUD check In proper placement on exam. H appy with method. Discussion Note: None recorded.Patient educational handouts: No information available. Plan of Care Reminders Provider Appointments Hme 30 07/24/2021 Brenna Acharya 10:00AM JO ANN Bynum ? Hme 30 on or around Brenna Acharya 07/24/2021 JO ANN Bynum Lab None ? ? recorded. Referral None [...] BMI Blood Pressure 5 ft 2 in 206.9 lbs 37.8 kg/m2 126/72 mm[Hg] Results Lab Results None [...] by ? ? Appendectomy Information not avai labmadalyn Notes: Age 11 Vaccine List Vaccine Type [...] Father Hypertensive disorder (No N/A (No No stacy) Information) Functional Status Unknown. Past Encounters 07/24/2020 Gynecologic Examination; IUD Check BONITA CabreraM: [address] [place] [address], Ph. History of Present Illness ? Annual STAMPER BLOCKER Reported By: Patient History: History: no gynecologic comp laints Genitourinary symptoms: Urinary symptoms: No hematur ia, Incontinence Breast symptoms: Breast: No breast pain, No b reast lump, No nipple discharge Contraception: Current Contraception: Satis fied with current contraception, Monogamous relationship, Int rauterine device (iud) Endocrine symptoms: Sexual complaints: No sexual complaints, No pain during intercourse Psychological symptoms: Psychological symptoms: No d epression, No anxiety; does state she's having a hard time wit h restrictions on travel and seeing her family due to COV ID, but has suppport Preventative measures: Preventive measures: Encoura ge regular exercise Review of Systems: ROS as noted in the HPI Review of Systems None recorded. Physical Exam ? Annual Pediatric Clinical Nurse Specialist Exam Reported By: Patient Molder Foam Rubber: Molder Foam Rubber: hanna foreman Constitutional: General Appearance: healthy- appearing, well-nourished, well-developed Psychiatric: Orientation: to time, to vincent ce, to person. Mood and Affect: active and alert, normal mood, norm al affect Skin: Appearance: no rashes, no le sions Neck: Neck: supple, no masses. Thy roid: no enlargement, non-tender Lungs: Respiratory Effort: no inter costal retractions, no accessory muscle usage. Auscultation: clear t o auscultation Cardiovascular: Auscultation: RRR, no murmur . Peripheral Vascular: no LLE edema, no RLE edema Abdomen: Auscultation/Inspection/Palp ation: normal bowel sounds, soft, no tenderness, no CVA tendernes s Breast: Inspection/Palpation: no ski n changes, no abnormal secretions, nipple appearance normal, no tenderness, no distinct masses Female Genitalia: Vulva: no masses, no atrophy , no lesions. Vagina: no tenderness. Cervix: grossly normal, no c ervical motion tenderness, IUD string seen Lymph Nodes: Palpation: non tender subman dibular nodes
[2020-08-27] MEDS: Acetaminophen 500 MG TAB 1000 MG PO (13:54)
[2020-08-27] MEDS: Bupivacaine 0.5% Pres-Free 30 ML VIAL (13:55)
[2020-08-27] MEDS: Ketorolac 15 MG/ML VIAL IM (13:55)
[2020-08-27 14:21] VITALS: BP 135/78; PULSE 75; RESP 18; TEMP 36.6; O2SAT 98
== END 2020-08-27 14:26 | disposition home or self-care (01) ==
PROVIDERS: Emergency Provider Physician Assistant
DX: M79.621 Pain in right upper arm (principal); M54.12 Radiculopathy, cervical region; R20.2 Paresthesia of skin
CPT/HCPCS: 96372; 99284; 99283; J1885